=== PATIENT | male | born 1980 | race Caucasian/White ===

== ENCOUNTER 2021-10-04 12:07 | Emergency (ER) | payer OTHER ==
[~2021-10-04] VITALS: Ht 172.7 cm; Wt 61.2 kg
[2021-10-04 12:21] VITALS: BP 112/82
--- NOTE | 2021-10-04 12:30 | NUR ---
PT AMBULATED TO BED 01.
[2021-10-04] MEDS ORDERED: MORPHINE SULFATE 4 MG/ML SYR IVP ONE (13:50)
--- NOTE | 2021-10-04 14:05 | NUR ---
XRAY AT BEDSIDE
[2021-10-04 14:26] LABS: BASOPHILS % (AUTO) 0.1 % (0.0-2.0); EOSINOPHILS % (AUTO) 0.5 % (0.0-4.0); HEMATOCRIT 46.6 % (36-52); HEMOGLOBIN 15.4 g/dL (12.0-18.0); LYMPHOCYTES # (AUTO) 0.4 K/uL (2.0-11.5); LYMPHOCYTES % (AUTO) 6.7 % (20.5-51.1); MEAN CORPUSCULAR HEMOGLOBIN 31 pg (27-31); MEAN CORPUSCULAR HGB CONC 33 g/dL (33-37); MEAN CORPUSCULAR VOLUME 92.2 fL (80-94); MONOCYTES # (AUTO) 0.4 K/uL (0.8-1.0); MONOCYTES % (AUTO) 6.9 % (1.7-9.3); NEUTROPHILS # (AUTO) 5.3 K/uL (1.8-7.7); NEUTROPHILS % (AUTO) 85.8 % (42.2-75.2); PLATELET COUNT (AUTO) 179 K/uL (140-450); RED BLOOD CELL COUNT(AUTO) 5.05 MIL/uL (4.20-6.10); RED CELL DISTRIBUTION WIDTH 13.6 % (11.6-13.7); WHITE BLOOD COUNT (AUTO) 6.2 K/uL (4.8-10.8)
[2021-10-04 14:36] LABS: ALBUMIN 3.9 g/dL (3.4-5.0); ANION GAP 12.3 (8-16); CARBON DIOXIDE 24.7 mmol/L (21-32); CREATININE 1.5 mg/dL (0.6-1.3); TOTAL BILIRUBIN 0.7 mg/dL (0.0-1.0)
[2021-10-04] MEDS ORDERED: FAMOTIDINE 20 MG/2 ML VIAL IVP ONE (15:30)
--- NOTE | 2021-10-04 15:53 | NUR ---
PT MOVED TO CHAIR C
[2021-10-04 16:15] LABS: LIPASE 72 U/L (73-393)
[2021-10-04] MEDS ORDERED: ALUM355S59 PO (17:02)
[2021-10-04] MEDS ORDERED: FAMO-90 PO (17:02)
--- NOTE | 2021-10-04 17:17 | NUR ---
Patient discharged with v/s stable. Written and verbal after care instructions given and explained. Patient alert, oriented and verbalized understanding of instructions. Ambulatory with steady gait. All questions addressed prior to discharge. ID band removed. Patient advised to follow up with PMD. Rx of MAALOX, PEPCID AND ZOFRAN given. Patient educated on indication of medication including possible reaction and side effects. Opportunity to ask questions provided and answered.
[2021-10-04 17:19] VITALS: BP 112/82
== END 2021-10-04 17:17 | disposition home or self-care (01) ==
LOC: MED 12:07
DX: R07.2 Precordial pain (principal); R11.0 Nausea; R05.9 Cough, unspecified; F12.90 Cannabis use, unspecified, uncomplicated
CPT/HCPCS: 36415; 71045; 80053; 83690; 83880; 84484; 85025; 93005; 96374; 96375; 99285; J2270; J3490

== ENCOUNTER 2023-03-04 11:23 | Emergency (ER) | payer OTHER ==
[~2023-03-04] VITALS: Ht 170.2 cm; Wt 64.4 kg
[~2023-03-04 11:23] MED LIST: ALUM355S59 PO; FAMO-90 PO
[2023-03-04 11:39] VITALS: BP 135/91; PULSE 72; RESP 17; TEMP 97.9; O2SAT 97
[2023-03-04] MEDS ORDERED: IBUPROFEN 600 MG TAB PO ONE (12:35)
[2023-03-04] MEDS ORDERED: LIDOCAINE MPF 2% 100 MG/5 ML VIAL INJ ONE (12:35)
[2023-03-04] MEDS ORDERED: BACI-418 TP (12:41)
[2023-03-04] MEDS ORDERED: IBUP-1842 PO (12:41)
[2023-03-04 13:37] VITALS: BP 135/91; PULSE 72; RESP 17; TEMP 97.9; O2SAT 97
== END 2023-03-04 13:37 | disposition home or self-care (01) ==
LOC: MED 11:23
DX: S81.811A Laceration without foreign body, right lower leg, initial encounter (principal); Z79.899 Other long term (current) drug therapy; Z79.1 Long term (current) use of non-steroidal anti-inflammatories (NSAID); Z79.2 Long term (current) use of antibiotics; W22.8XXA Striking against or struck by other objects, initial encounter; Y93.51 Activity, roller skating (inline) and skateboarding; Y92.331 Roller skating rink as the place of occurrence of the external cause; Y99.8 Other external cause status
CPT/HCPCS: 12002; 90471; 90715; 99283; J2001

== ENCOUNTER 2023-03-06 08:25 | Emergency (ER) | payer OTHER ==
[~2023-03-06] VITALS: Ht 170.2 cm; Wt 64.0 kg
[~2023-03-06 08:25] MED LIST changes: +BACI-418 TP; +IBUP-1842 PO
[2023-03-06 08:37] VITALS: BP 122/65; PULSE 66; RESP 15; TEMP 98.2; O2SAT 98
== END 2023-03-06 09:03 | disposition home or self-care (01) ==
LOC: MED 08:25
DX: S81.811D Laceration without foreign body, right lower leg, subsequent encounter (principal); X58.XXXD Exposure to other specified factors, subsequent encounter
CPT/HCPCS: 99281

== ENCOUNTER 2023-03-16 10:12 | Emergency (ER) | payer OTHER ==
[~2023-03-16] VITALS: Ht 167.6 cm; Wt 72.6 kg
[2023-03-16 10:37] VITALS: BP 122/74; PULSE 86; RESP 18; TEMP 97; O2SAT 98
[2023-03-16 12:30] VITALS: BP 122/74; PULSE 86; RESP 18; TEMP 97; O2SAT 98
== END 2023-03-16 12:30 | disposition home or self-care (01) ==
LOC: MED 10:12
DX: S81.811D Laceration without foreign body, right lower leg, subsequent encounter (principal); Z48.02 Encounter for removal of sutures; Z79.899 Other long term (current) drug therapy; Z79.1 Long term (current) use of non-steroidal anti-inflammatories (NSAID); Z79.2 Long term (current) use of antibiotics; X58.XXXD Exposure to other specified factors, subsequent encounter
CPT/HCPCS: 99281